=== PATIENT | female | born 1965 | race Caucasian/White ===

== ENCOUNTER → 2016-10-04 | Outpatient (CLI) | payer BC ==
[~2016-10-04] MED LIST: AMIT25TA9 PO; CETI10CA PO; GADOBUTROL 10 MMOL/10 ML (GADAVIST) VIAL IV ONE; MELA10TA2 PO; ORTHO EVRA TD
[2016-10-04 14:43] LABS: BLOOD UREA NITROGEN 11 MG/DL (7-18); BUN/CREATININE RATIO 15; CREATININE SERUM 0.71 MG/DL (0.60-1.30); GFR ESTIMATED > 60
--- NOTE | 2016-10-04 16:21 | Diagnostic Imaging Report ---
PROCEDURE: MR imaging of the brain with and without contrast. TECHNIQUE: Multiplanar, multisequence MR imaging of the brain was performed with and without contrast. INDICATION: Abnormal previous MR brain. Suspect demyelinating process. COMPARISON: 03/01/2016. FINDINGS: Again identified are areas of abnormal T2/FLAIR bright signal within the periventricular and subcortical deep white matter. Overall, burden of distribution is stable compared to prior exam. Postcontrast images show no abnormal areas of enhancement. There is no abnormal diffusion restriction or other evidence to suggest active demyelination. There is a small ovoid T2 dark lesion within the left lateral of the third ventricle that measures approximately 5 x 8 mm (image 12, series 4). The lesion is most conspicuous on the GRE sequence (image 12, series 7). There is some amorphous enhancement in this area on the postcontrast series. Overall appearance is stable compared to prior exam. No other abnormal areas of intra- or extra-axial intracranial enhancement are seen. There is no evidence of intracranial hemorrhage. There is no mass effect or midline shift. Ventricles and cortical sulci are age appropriate. There is no evidence of acute infarct. Midline craniocervical anatomy is maintained. Major expected intracranial flow voids are identified. No focal calvarial lesions are seen. Paranasal sinuses show small mucus retention cysts versus polyps in the right maxillary sinus. The mastoid air cells are clear. IMPRESSION: 1. Stable T2/FLAIR bright signal within the periventricular and subcortical deep white matter. Findings could be on the basis of chronic small vessel ischemic changes. A demyelinating process cannot be excluded. 2. No evidence of active demyelination. 3. A focal lesion just to the left lateral of the third ventricle as described above. 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 This is stable as well. Dictated by: Dictated on workstation # [id number]
== END ==
LOC: RAD 14:08
PROVIDERS: ATTEND Family Medicine
DX: R93.0 Abnormal findings on diagnostic imaging of skull and head, not elsewhere classified (principal)
CPT/HCPCS: 36415; 70553; 82565; 84520

== ENCOUNTER → 2017-12-15 | Outpatient (CLI) | payer BC ==
[~2017-12-15] MED LIST changes: -GADOBUTROL 10 MMOL/10 ML (GADAVIST) VIAL IV ONE; +GADOBUTROL 7.5 MMOL/7.5 ML (GADAVIST) VIAL IV ONE
[2017-12-15 09:52] LABS: BASOPHILS % (AUTO) 1 % (0-10); EOSINOPHILS # (AUTO) 0.2 10^3/uL (0.0-0.3); EOSINOPHILS % (AUTO) 3 % (0-10); HEMATOCRIT 39 % (35-52); HEMOGLOBIN 13.3 G/DL (11.5-16.0); LYMPHOCYTES # (AUTO) 2.7 X 10^3 (1.0-4.0); LYMPHOCYTES % (AUTO) 40 % (12-44); MEAN CORPUSCULAR HEMOGLOBIN 32 PG (25-34); MEAN CORPUSCULAR HGB CONC 35 G/DL (32-36); MEAN CORPUSCULAR VOLUME 93 FL (80-99); MEAN PLATELET VOLUME 11.1 FL (7.4-10.4); MONOCYTES # (AUTO) 0.3 X 10^3 (0.0-1.0); MONOCYTES % (AUTO) 5 % (0-12); NEUTROPHILS # (AUTO) 3.5 X 10^3 (1.8-7.8); NEUTROPHILS % (AUTO) 53 % (42-75); PLATELET COUNT 258 10^3/uL (130-400); RED BLOOD COUNT 4.16 10^6/uL (4.35-5.85); RED CELL DISTRIBUTION WIDTH 13.1 % (10.0-14.5); WHITE BLOOD COUNT 6.7 10^3/uL (4.3-11.0)
[2017-12-15 10:13] LABS: ALANINE AMINOTRANSFERASE 41 U/L (0-55); ALBUMIN 4.3 GM/DL (3.2-4.5); ALKALINE PHOSPHATASE 107 U/L (40-136); BILIRUBIN,TOTAL 0.8 MG/DL (0.1-1.0); BUN/CREATININE RATIO 23; CALCIUM 9.5 MG/DL (8.5-10.1); CARBON DIOXIDE 25 MMOL/L (21-32); CHLORIDE 108 MMOL/L (98-107); CHOLESTEROL 231 MG/DL (< 200); CREATININE SERUM 0.75 MG/DL (0.60-1.30); GFR ESTIMATED > 60; GLUCOSE 80 MG/DL (70-105); HDL CHOLESTEROL 76 MG/DL (40-60); POTASSIUM 3.5 MMOL/L (3.6-5.0); SODIUM 142 MMOL/L (135-145); TOTAL PROTEIN 7.4 GM/DL (6.4-8.2); TRIGLYCERIDES 60 MG/DL (<150); VLDL CHOLESTEROL 12 MG/DL (5-40)
--- NOTE | 2017-12-15 11:54 | Diagnostic Imaging Report ---
PROCEDURE: MR angiography of the brain without the use of contrast. TECHNIQUE: 3D [id number] non contrast enhanced MR angiography of the head was performed. A source data was reformatted into rotating MIP projections. INDICATION: History of left cervical ICA dissection. COMPARISON: MRA head 06/03/2016. MRA neck 06/05/2016. FINDINGS: The intracranial bilateral vertebral, internal carotid, basilar, middle cerebral, anterior cerebral and posterior cerebral arteries are widely patent without evidence of aneurysm or dissection. The superior, anterior inferior and posterior inferior cerebellar arteries are patent. The visualized dural venous sinuses are normal. IMPRESSION: No high-grade narrowing, aneurysm or dissection involving the major intracranial arteries. Dictated by: Dictated on workstation # [id number]
--- NOTE | 2017-12-15 18:26 | Diagnostic Imaging Report ---
PROCEDURE: MR angiography neck with and without contrast. TECHNIQUE: Pre and post contrast-enhanced MR angiography of the neck was performed. Source data was reformatted into rotating MIP projections. INDICATION: Left internal carotid artery dissection. COMPARISON: Comparison made with prior examination from 06/05/2016. FINDINGS: There is a normal branching pattern of the thoracic aorta. Common carotid arteries are widely patent. There is no significant stenosis in either carotid bifurcation. On the 2D [id number], there are some areas of abnormal signal in the region of the previous dissection however this is thought to be flow-related artifact due to marked tortuosity of the vessels. Post contrast images demonstrate minimal intimal irregularity, however the vessels are normal in caliber. The distal right internal carotid artery and basilar arteries are widely patent. There is no other dissection, stenosis, or occlusion. IMPRESSION: 1. Stable minimal residual intimal irregularity in the cervical portion of the distal left internal carotid artery with normal caliber of the vessel. 2. No other dissection, stenosis, or occlusion. Dictated by: Dictated on workstation # [id number]
== END ==
LOC: RAD 09:21
PROVIDERS: ATTEND Family Medicine
DX: R93.0 Abnormal findings on diagnostic imaging of skull and head, not elsewhere classified (principal); L65.9 Nonscarring hair loss, unspecified; Z86.79 Personal history of other diseases of the circulatory system
CPT/HCPCS: 36415; 70544; 70549; 80053; 80061; 84443; 85025; 86141

== ENCOUNTER 2019-04-02 09:31 | Outpatient (RCR) | payer BC ==
[~2019-04-02 09:31] MED LIST changes: -GADOBUTROL 7.5 MMOL/7.5 ML (GADAVIST) VIAL IV ONE
--- NOTE | 2019-04-02 10:19 | Diagnostic Imaging Report ---
PROCEDURE: MR imaging cervical spine without contrast. TECHNIQUE: Multiplanar, multisequence MR imaging of the cervical spine was performed without contrast. INDICATION: Tingling and pain in the cervical spine. COMPARISON: No prior studies are available for comparison. FINDINGS: Curvature and alignment of the cervical spine is normal. Vertebral body marrow signal is normal. No geographic marrow lesion is seen. Mild disc desiccation is seen at multiple levels of the cervical spine but no significant disc space narrowing is seen. The cervical cord demonstrates normal homogeneous signal intensity and normal morphology. Craniocervical junction is unremarkable. C2-C3: Central canal and neural foramina are widely patent. C3-C4: Central canal and neural foramina are widely patent. C4-C5: There are endplate osteophytes present. Uncovertebral joint degenerative changes does result in mild left-sided neural foraminal narrowing. The right neural foramen is patent. Central canal is patent. C5-C6: Central canal and neural foramina are widely patent. C6-C7: Central canal and neural foramina are widely patent. C7-T1: Central canal and neural foramina are widely patent. IMPRESSION: Mild degenerative changes at C4-C5 level with mild left neural foraminal narrowing. No central canal stenosis is seen. Dictated by: Dictated on workstation # [id number]
== END 2019-07-01 | disposition home or self-care (01) ==
LOC: CARD 09:31
PROVIDERS: ATTEND Nurse Practitioner Family
DX: M47.812 Spondylosis without myelopathy or radiculopathy, cervical region (principal); M48.02 Spinal stenosis, cervical region; I77.71 Dissection of carotid artery; R00.2 Palpitations
CPT/HCPCS: 72141; 93225; 93226

== ENCOUNTER 2019-04-07 13:16 | Outpatient (RCR) | payer BC ==
[2019-04-07] MEDS ORDERED: GADOBUTROL 10 MMOL/10 ML (GADAVIST) VIAL IV ONE (13:30)
--- NOTE | 2019-04-07 16:41 | Diagnostic Imaging Report ---
PROCEDURE: MR imaging of the brain with and without contrast. TECHNIQUE: Multiplanar, multisequence MR imaging of the brain was performed with and without contrast. INDICATION: Carotid dissection, demyelinating disease. FINDINGS: The previous MRI brain exam performed on 10/04/2016 failed to show any sign of an acute intracranial abnormality. However several other findings were noted. Specifically there were areas of increased signal in the periventricular white matter bilaterally on the FLAIR series. These findings were felt to be nonspecific in nature but the possibility of demyelinating disease was raised. On the FLAIR series of this exam those findings are again evident and do not appear to have changed significantly. While these could be secondary to demyelinating disease, the possibility that they are related to encephalomalacia from microvascular ischemia should also be considered. Furthermore there is no abnormal enhancement of these lesions on the postcontrast sequence to suggest active demyelination. The previous study also noted an area of diminished signal adjacent to the third ventricle on the FLAIR series. That finding is again evident and no different. On the postcontrast series there is an enhancing vascular structure in this area. This may represent benign capillary telangiectasia or perhaps a venous angioma. The diminished signal could be related to hemosiderin deposition from previous episodes of hemorrhage. The overall appearance of the brain is stable. There is no abnormal signal arising from the brain on the diffusion series to indicate an area of acute ischemia. There is no mass, shift of the midline or a parenchymal hemorrhage identified. The ventricles are stable in size. The sella is not enlarged and the expected carotid flow voids are evident bilaterally. The orbits are symmetrical and within normal limits. The sinuses are generally clear. The seventh and eighth nerve complexes are unremarkable. IMPRESSION: 1. There is no evidence for an acute intracranial abnormality. 2. There is no abnormal enhancement to suggest a neoplastic or infectious process or active demyelination. 3. The enhancing vascular structure adjacent to the third ventricle may be related to benign capillary telangiectasia or a venous angioma. This finding is stable when compared with the previous study. Dictated by: Dictated on workstation # [id number]
--- NOTE | 2019-04-07 20:34 | Diagnostic Imaging Report ---
PROCEDURE: MR angiography neck with and without contrast. TECHNIQUE: Pre and post contrast-enhanced MR angiography of the neck was performed. Source data was reformatted into rotating MIP projections. INDICATION: Previous dissection. FINDINGS: The previous MRA neck exam of 12/15/2017 noted minimal residual intimal irregularity in the cervical portion of the distal internal carotid artery on the left. That finding is again evident and does not appear to have changed significantly. The left carotid system is otherwise stable in appearance. There is still no evidence for a hemodynamically significant stenosis of either carotid system. The vertebral arteries are codominant. IMPRESSION: The minimal irregularity of the cervical portion of the distal left internal carotid artery seen previously appears stable. The overall appearance of the carotid and vertebrobasilar systems is otherwise no different. No new abnormality has developed. Dictated by: Dictated on workstation # [id number]
== END 2019-07-06 | disposition home or self-care (01) ==
LOC: RAD 13:16
PROVIDERS: ATTEND Nurse Practitioner Family
DX: I77.71 Dissection of carotid artery (principal); G37.9 Demyelinating disease of central nervous system, unspecified; R00.2 Palpitations; M54.2 Cervicalgia
CPT/HCPCS: 70549; 70553

== ENCOUNTER 2019-10-20 09:55 | Outpatient (RCR) | payer BC | END 2020-01-18 | disposition home or self-care (01) | LOC: CARD 09:55 | PROVIDERS: ATTEND Internal Medicine Interventional Cardiology | DX: I35.1 Nonrheumatic aortic (valve) insufficiency (principal); E78.01 Familial hypercholesterolemia; I10 Essential (primary) hypertension; I77.71 Dissection of carotid artery | CPT/HCPCS: 93306 ==

== ENCOUNTER 2021-08-24 13:19 | Outpatient (CLI) | payer BC | END 2021-08-24 13:40 | LOC: SLEEP 13:19 | PROVIDERS: ATTEND Family Medicine | DX: G47.36 Sleep related hypoventilation in conditions classified elsewhere (principal); G47.10 Hypersomnia, unspecified | CPT/HCPCS: G0399 ==

== ENCOUNTER → 2022-04-16 | Outpatient (CLI) | payer BC ==
--- NOTE | 2022-04-16 10:35 | Diagnostic Imaging Report ---
INDICATION: Postmenopausal screening COMPARISON: 04/16/2022 FINDINGS: AP Spine L1-L4: [BMD (g/cm2): 1.236] [T-Score: 0.3] [Z-Score: 0.7] [BMD Previous: NA] [BMD % Change: NA] LT Hip Neck: [BMD (g/cm2): 0.926] [T-Score: -0.8] [Z-Score: -0.1] LT Hip Total: [BMD (g/cm2):1.016] [T-Score:0.1] [Z-Score: 0.4] [BMD Previous: NA] [BMD % Change: NA] RT Hip Neck: [BMD (g/cm2):0.957] [T-Score:-0.6] [Z-Score:0.1] RT Hip Total: [BMD (g/cm2):1.034] [T-score:0.2] [Z-Score:0.6] [BMD Previous:NA] [BMD % Change:NA] *Indicates significant change from prior examination based on 95% confidence level. World Health Organization criteria for BMD interpretation classify patients as Normal (T-score at or above -1.0), Osteopenic (T-score between -1.0 and -2.5) or Osteoporotic (T-score at or below -2.5). LIMITATIONS AND MODIFICATION: None. FRACTURE RISK (FRAX SCORE): The ten year probability of (%): Major Osteoporotic Fracture: [NA] Hip Fracture: [NA] IMPRESSION: 1. Normal bone mineral density. 2. no statistically significant difference 3. See below National Osteoporosis Foundation guidelines on when to potentially initiate pharmacologic therapy. Based on the National Osteoporosis Foundation Guidelines, pharmacologic treatment should be initiated in any of the following, unless clinical conditions suggest otherwise: * Any patient with prior fragility fracture of the hip or vertebrae. A spine fracture indicates 5X risk for subsequent spine fracture and 2X risk for subsequent hip fracture. * Osteoporosis (T-score <-2.5). * Postmenopausal women and men age 50 and older with low bone mass/osteopenia (T-score between -1.0 and -2.5) by DXA and 10-year major osteoporotic fracture greater than 20% or a 10-year probability of hip fracture greater than 3%. These fracture risks are supplied above in the FRAX score, if applicable. * Clinician judgement and/or patient preferences may indicate treatment for people with 10-year fracture probabilities above or below these levels. Dictated by: Dictated on workstation # [id number]
== END ==
LOC: RAD 04-12 15:42
PROVIDERS: ATTEND Family Medicine
DX: Z78.0 Asymptomatic menopausal state (principal)
CPT/HCPCS: 77080

== ENCOUNTER → 2022-05-07 | Outpatient (CLI) | payer BC ==
[~2022-05-07] VITALS: Ht 167 cm; Wt 84.0 kg
[~2022-05-07] MED LIST changes: +CATHETER FLUSH 10 ML SYR IVP PRN; +REGADENOSON 0.4 MG/5 ML SYR (LEXISCAN) IV ONE
[2022-05-07 09:46] VITALS: BP 156/96
--- NOTE | 2022-05-08 22:21 | STRESS TEST ---
DATE OF SERVICE: 05/07/2022 RESTING AND POST REGADENOSON TECHNETIUM-99M TETROFOSMIN SPECT CT IMAGING ORDERING PHYSICIAN: Dr. Jang. PRIMARY PHYSICIAN: Dr. Rogers. CLINICAL DIAGNOSIS: Abnormal electrocardiogram. Baseline images were carried out after injection of 10.24 mCi of technetium-99m Tetrofosmin. This was followed by 0.4 mg regadenoson and 31.9 mCi of technetium-99m Tetrofosmin for stress imaging. The electrocardiogram showed sinus rhythm with nonspecific ST segment abnormality at baseline. It did not change significantly with the regadenoson infusion. The patient noted lightheadedness following regadenoson infusion, which resolved in a few minutes. Review of images at rest and following stress does not indicate any significant perfusion defects consistent with myocardial ischemia or infarction. Gated images show normal global left ventricular systolic function with normal regional wall motion. Left ventricular ejection fraction is calculated to be 58%. CONCLUSIONS: 1. No evidence of any significant myocardial ischemia or infarction on this study. 2. Normal regional wall motion. 3. Normal global left ventricular systolic function with a calculated ejection fraction of 58%. Job ID: [id number] DocumentID: [id number] Dictated Date: 05/08/2022 16:49:44 [employer] Date: 05/08/2022 22:20:30 Dictated By: MIGUEL ÁNGEL JANG MD, MA, FACP, FACC,
== END ==
LOC: CARD 08:10
PROVIDERS: ATTEND Internal Medicine Cardiovascular Disease
DX: R94.31 Abnormal electrocardiogram [ECG] [EKG] (principal)
CPT/HCPCS: 78452; 93017; A9502

== ENCOUNTER → 2022-08-14 | Outpatient (CLI) | payer BC, OTHER ==
[~2022-08-14] MED LIST changes: -CATHETER FLUSH 10 ML SYR IVP PRN; -REGADENOSON 0.4 MG/5 ML SYR (LEXISCAN) IV ONE
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
== END ==
LOC: RAD 10:30
PROVIDERS: ATTEND Family Medicine
DX: R07.81 Pleurodynia (principal); M54.2 Cervicalgia
CPT/HCPCS: 71100; 72040

== ENCOUNTER → 2023-03-28 | Outpatient (CLI) | payer BC, OTHER ==
[~2023-03-28] MED LIST changes: +GADOTERATE 0.5 MMOL/ML (CLARISCAN) 20 ML VIAL IV ONE
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
== END ==
LOC: RAD 13:15
PROVIDERS: ATTEND Internal Medicine
DX: M47.812 Spondylosis without myelopathy or radiculopathy, cervical region (principal); M48.02 Spinal stenosis, cervical region; G44.329 Chronic post-traumatic headache, not intractable; Z86.79 Personal history of other diseases of the circulatory system
CPT/HCPCS: 70549; 70553; 72141